=== PATIENT | male | born 1980 | race African-American/Black ===

== ENCOUNTER 2019-12-21 13:31 | Emergency (ER) | payer OTHER ==
[~2019-12-21] VITALS: Ht 185.4 cm; Wt 89.8 kg
[~2019-12-21 13:31] MED LIST: LEVSIN/SL0.125 MG SL; PROTONIX40 MG PO
== END 2019-12-21 14:56 | disposition home or self-care (01) ==
LOC: ER 13:31
DX: S61.021A Laceration with foreign body of right thumb without damage to nail, initial encounter (principal); W26.0XXA Contact with knife, initial encounter; Y93.89 Activity, other specified; Y92.018 Other place in single-family (private) house as the place of occurrence of the external cause; Y99.8 Other external cause status

== ENCOUNTER 2019-12-31 08:37 | Emergency (ER) | payer OTHER ==
[~2019-12-31] VITALS: Ht 185.4 cm; Wt 89.8 kg
== END 2019-12-31 09:54 | disposition home or self-care (01) ==
LOC: ER 08:37
DX: Z48.02 Encounter for removal of sutures (principal)